=== PATIENT | female | born 1950 | race Caucasian/White ===

== ENCOUNTER → 2018-11-22 | Outpatient (CLI) | payer MEDICARE, BC | LOC: MC.RAD 16:12 | DX: Z12.31 Encounter for screening mammogram for malignant neoplasm of breast (principal) ==

== ENCOUNTER → 2019-07-05 | Outpatient (CLI) | payer MEDICARE, BC | LOC: MC.RAD 08:55 | DX: N64.59 Other signs and symptoms in breast (principal) ==

== ENCOUNTER 2022-11-13 08:54 | Day surgery (SDC) | payer MEDICARE, BC ==
[~2022-11-13] VITALS: Ht 165.1 cm; Wt 103.2 kg
[2022-11-13 09:53] VITALS: BP 151/87; PULSE 72; TEMP 98.8
[2022-11-13] MEDS ORDERED: ZYRTEC 10MG10 MG PO (10:04)
[2022-11-13] MEDS ORDERED: CELEXA 20MG20 MG/TAB PO (10:04)
[2022-11-13] MEDS ORDERED: LIPITOR20 MG PO (10:04)
[2022-11-13 10:45] VITALS: BP 128/75; PULSE 69; TEMP 98.8
--- NOTE | 2022-11-13 10:45 | NUR ---
1045 PATIENT RETURNS TO ROOM 5. PATIENT IS ALERT AND ORIENTED. RESPIRATIONS EVEN AND UNLABORED. PATIENT AMBULATES TO RECLINER WITH THE ASSISTANCE OF 2 NURSES. VITAL SIGNS OBTAINED. 1050 PATIENT REQUESTED WATER. NO DIFFICULTIES SWALLOWING. 1100 DISCONTINUED IV FROM RIGHT FOREARM WITH NO DIFFICULTIES. 1105 THIS NURSE REVIEWED DISCHARGE INSTRUCTIONS. PATIENT VERBALIZED UNDERSTANDING. 1110 DOCTOR IN TO SPEAK WITH PATIENT. 1115 PATIENT DRESSES SELF. 1125 PATIENT DISCHARGES FROM UNIT VIA WHEELCHAIR.
[2022-11-13 11:00] VITALS: BP 147/81; PULSE 62
[2022-11-13 11:15] VITALS: BP 112/80; PULSE 61
== END 2022-11-13 11:25 | disposition home or self-care (01) ==
LOC: SDCO 08:54
DX: Z12.11 Encounter for screening for malignant neoplasm of colon (principal)
CPT/HCPCS: J2704; J7120